=== PATIENT | male | born 1980 | race African-American/Black ===

== ENCOUNTER 2017-04-06 04:16 | Emergency (ER) | payer MEDICAID | END 2017-04-06 05:41 | disposition home or self-care (01) | LOC: D.ER 04:16 | DX: L03.012 Cellulitis of left finger (principal) ==

== ENCOUNTER 2018-03-29 21:19 | Emergency (ER) | payer MEDICAID | END 2018-03-29 22:48 | disposition home or self-care (01) | LOC: D.ER 21:19 | DX: S39.012A Strain of muscle, fascia and tendon of lower back, initial encounter (principal); X58.XXXA Exposure to other specified factors, initial encounter; Y93.89 Activity, other specified; Y92.89 Other specified places as the place of occurrence of the external cause; M62.838 Other muscle spasm ==